=== PATIENT | female | born 1940 | race Asian ===

== ENCOUNTER 2020-05-28 10:12 | Outpatient (CLI) | payer OTHER ==
[2020-05-28 11:32] LABS: PLATELET COUNT 383 K/uL (152-353)
[2020-05-28 11:52] LABS: POTASSIUM 3.2 mmol/L (3.6-5.2)
== END 2020-05-28 23:01 | disposition home or self-care (01) ==
LOC: LABW 10:12
PROVIDERS: ATTEND Internal Medicine
DX: R10.84 Generalized abdominal pain (principal); N18.2 Chronic kidney disease, stage 2 (mild)
CPT/HCPCS: 36415; 80053; 81000; 82043; 82306; 85027; 86140